=== PATIENT | male | born 1955 | race Caucasian/White ===

== ENCOUNTER 2016-10-01 09:59 | Outpatient (CLI) | payer MEDICARE, OTHER ==
[2016-10-01 11:00] LABS: ALT (SGPT) 16 U/L (0-55); AST (SGOT) 28 U/L (5-34); Alkaline Phosphatase 83 U/L (40-150); Anion Gap 14 mmol/L (10-20); BUN (Urea Nitrogen) 19 mg/dL (8.4-25.7); Bilirubin, Total 0.3 mg/dL (0.2-1.2); Calc. Creatinine Clearance 0 mL/min (70-130); Calcium 9.1 mg/dL (7.8-10.44); Carbon Dioxide 26 mmol/L (22-29); Chloride 104 mmol/L (98-107); Estimated GFR-MDRD 61; Globulin 2.5 g/dL (2.4-3.5); LDL Cholesterol, Calculated 76 mg/dL; Protein, Total 6.5 g/dL (6.0-8.3)
[2016-10-01 11:06] LABS: #Eosinphils 0.1 thou/uL (0.0-0.7); #Lymphocytes 1.3 thou/uL (1.20-3.40); #Monocytes 0.6 thou/uL (0.11-0.59); #Neutrophils 5.2 thou/uL (1.40-6.50); %Basophils 0.7 % (0.0-1.0); %Eosinophils 1.6 % (0.0-10.0); %Monocytes 8.2 % (0.0-10.0); Hematocrit 39.3 % (42.0-52.0); Mean Platelet Volume 7.5 fL (7.4-10.4); Red Blood Cell (RBC) Count 4.17 mill/uL (4.70-6.10); White Blood Cell (WBC) Count 7.2 thou/uL (4.8-10.8)
== END 2016-10-01 10:00 | disposition home or self-care (01) ==
LOC: HPCALD 09:59
PROVIDERS: ATTEND Family Medicine
DX: Z13.6 Encounter for screening for cardiovascular disorders (principal); I10 Essential (primary) hypertension; E03.9 Hypothyroidism, unspecified; E55.9 Vitamin D deficiency, unspecified
CPT/HCPCS: 36415; 80053; 80061; 82306; 84443; 85025

== ENCOUNTER 2016-12-04 11:12 | Emergency (ER) | payer MEDICARE, OTHER ==
[2016-12-04] MEDS ORDERED: Adacel (T-DAP) 0.5 ML VIAL ONE (11:36)
== END 2016-12-04 12:13 | disposition home or self-care (01) ==
LOC: BURERS 11:12
DX: S61.213A Laceration without foreign body of left middle finger without damage to nail, initial encounter (principal); I10 Essential (primary) hypertension; F32.9 Major depressive disorder, single episode, unspecified; F41.9 Anxiety disorder, unspecified; W23.0XXA Caught, crushed, jammed, or pinched between moving objects, initial encounter
CPT/HCPCS: 90471; 90715

== ENCOUNTER 2017-04-10 11:50 | Outpatient (CLI) | payer MEDICARE, OTHER ==
[2017-04-10 12:49] LABS: #Basophils 0.1 thou/uL (0.0-0.2); #Eosinphils 0.1 thou/uL (0.0-0.7); #Lymphocytes 1.1 thou/uL (1.20-3.40); #Monocytes 0.7 thou/uL (0.11-0.59); #Neutrophils 5.9 thou/uL (1.40-6.50); %Basophils 0.8 % (0.0-1.0); %Eosinophils 1.9 % (0.0-10.0); %Lymphocytes 13.6 % (21.0-51.0); %Monocytes 8.6 % (0.0-10.0); %Neutrophils 75.1 % (42.0-75.0); Mean Corpuscular HGB CONC 32.6 g/dL (32.0-36.0); Mean Corpuscular Hemoglobin 31.8 pg (27.0-31.0); Mean Corpuscular Volume 97.6 fl (80.0-94.0); Mean Platelet Volume 7.6 fL (7.4-10.4); Platelet Count 227 thou/uL (130-400); RBC Distribution Width 12.1 % (11.5-14.5); White Blood Cell (WBC) Count 7.9 thou/uL (4.8-10.8)
[2017-04-10 13:02] LABS: ALT (SGPT) 12 U/L (8-55); AST (SGOT) 17 U/L (5-34); Alkaline Phosphatase 98 U/L (40-150); Anion Gap 13 mmol/L (10-20); BUN (Urea Nitrogen) 21 mg/dL (8.4-25.7); Bilirubin, Total 0.3 mg/dL (0.2-1.2); Calc. Creatinine Clearance 0 mL/min (70-130); Carbon Dioxide 27 mmol/L (22-29); Chloride 106 mmol/L (98-107); Estimated GFR-MDRD 60; Globulin 2.4 g/dL (2.4-3.5); Glucose 121 mg/dL (70-105); Potassium 4.3 mmol/L (3.5-5.1); Protein, Total 6.4 g/dL (6.0-8.3); Sodium 142 mmol/L (136-145)
[2017-04-10 13:09] LABS: Free T4 (Free Thyroxine) 0.93 ng/dL (0.70-1.48); Thyroid Stimulating Hormone 0.8545 uIU/mL (0.35-4.94)
== END 2017-04-10 11:51 | disposition home or self-care (01) ==
LOC: HPCALD 11:50
PROVIDERS: ATTEND Family Medicine
DX: E03.9 Hypothyroidism, unspecified (principal); I10 Essential (primary) hypertension; Z79.899 Other long term (current) drug therapy
CPT/HCPCS: 36415; 80053; 82607; 84439; 84443; 85025

== ENCOUNTER 2017-09-04 12:04 | Outpatient (CLI) | payer MEDICARE ==
--- NOTE | 2017-09-04 22:07 | RAD ---
CERVICAL SPINE 09/04/17 AP, lateral and open mouth views are provided. Very prominent 5 mm anterolisthesis of C5 on C6 is present. 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 D isc space narrowing is present at C-C7 along with anterior osteophytes. No fracture was seen. The C1 to dens distance is normal and the soft tissues are normal in thickness. Some ossification is seen in the ligamentum nuchae. IMPRESSION: 1. Degenerative change, particularly in the lower cervical region. 2. Very prominent 5+ mm anterolisthesis of C5 on C6. MRI could be useful in assessment the possi bility of neural impingement. POS: HOME
== END 2017-09-04 12:05 | disposition home or self-care (01) ==
LOC: BURRAD 12:04
PROVIDERS: ATTEND Family Medicine
DX: M54.2 Cervicalgia (principal); M47.892 Other spondylosis, cervical region; M43.12 Spondylolisthesis, cervical region
CPT/HCPCS: 72040

== ENCOUNTER 2017-12-06 10:40 | Emergency (ER) | payer MEDICARE | END 2017-12-06 11:22 | disposition home or self-care (01) | LOC: BURERS 10:40 | DX: T22.191A Burn of first degree of multiple sites of right shoulder and upper limb, except wrist and hand, initial encounter (principal); T22.192A Burn of first degree of multiple sites of left shoulder and upper limb, except wrist and hand, initial encounter; T21.14XA Burn of first degree of lower back, initial encounter; T31.10 Burns involving 10-19% of body surface with 0% to 9% third degree burns; I10 Essential (primary) hypertension; F41.9 Anxiety disorder, unspecified; F32.9 Major depressive disorder, single episode, unspecified; X19.XXXA Contact with other heat and hot substances, initial encounter | CPT/HCPCS: 99283 ==

== ENCOUNTER 2020-02-25 22:10 | Emergency (ER) | payer MEDICARE ==
[2020-02-25] MEDS ORDERED: Lorazepam 2 MG/ML VIAL ONE (22:17)
== END 2020-02-25 22:57 | disposition home or self-care (01) ==
LOC: BURERS 22:10
DX: F15.129 Other stimulant abuse with intoxication, unspecified (principal); Z87.891 Personal history of nicotine dependence; Z79.899 Other long term (current) drug therapy
CPT/HCPCS: 93005; 96374; J2060

== ENCOUNTER 2020-03-18 18:28 | Emergency (ER) | payer MEDICARE ==
[2020-03-18] MEDS ORDERED: Bicillin LA 1.2 MILLION UNITS/2 ML SYRINGE ONE (18:52)
== END 2020-03-18 19:20 | disposition home or self-care (01) ==
LOC: BURERS 18:28
DX: J02.9 Acute pharyngitis, unspecified (principal); H92.03 Otalgia, bilateral; R59.0 Localized enlarged lymph nodes; Z79.899 Other long term (current) drug therapy
CPT/HCPCS: 96372; 99282; J0561

== ENCOUNTER 2020-11-22 10:33 | Outpatient (CLI) | payer MEDICARE | END 2020-11-22 10:34 | disposition home or self-care (01) | LOC: BURRAD 10:33 | PROVIDERS: ATTEND Family Medicine | DX: M54.2 Cervicalgia (principal); M25.531 Pain in right wrist; M19.031 Primary osteoarthritis, right wrist; M47.812 Spondylosis without myelopathy or radiculopathy, cervical region; M43.12 Spondylolisthesis, cervical region; M48.02 Spinal stenosis, cervical region; Z87.81 Personal history of (healed) traumatic fracture | CPT/HCPCS: 72040 ==